=== PATIENT | male | born 1960 | race Caucasian/White ===

== ENCOUNTER 2020-06-24 16:38 | Emergency (ER) | payer MEDICAID ==
[~2020-06-24] VITALS: Ht 180.3 cm; Wt 118.2 kg
[~2020-06-24 16:38] MED LIST: CLIN-97 PO; EMOL78CR TOP; PRED10TA PO
[2020-06-24 17:46] LABS: BASOPHILS % (AUTO) 0.5 % (0-1); EOSINOPHILS # (AUTO) 0.1 X10'3 (0-0.9); HEMATOCRIT 38.7 % (42.0-52.0); HEMOGLOBIN 12.9 g/dl (14.0-17.9); LYMPHOCYTES # (AUTO) 1.5 X10'3 (1.1-4.8); LYMPHOCYTES % (AUTO) 19.8 % (21-51); MEAN CORPUSCULAR HEMOGLOBIN 29.5 PG (27.0-31.0); MEAN CORPUSCULAR HGB CONC 33.4 g/dL (33.0-36.5); MEAN CORPUSCULAR VOLUME 88.2 FL (78-98); MEAN PLATELET VOLUME 8.4 FL (7.4-10.4); MONOCYTES # (AUTO) 0.7 X10'3 (0-0.9); MONOCYTES % (AUTO) 9.7 % (2-12); NEUTROPHILS # (AUTO) 5.1 X10'3 (1.8-7.7); PLATELET COUNT 251 X10'3 (140-440); RED BLOOD COUNT 4.39 X10'6 (4.70-6.10); RED CELL DISTRIBUTION WIDTH 14.1 % (11.5-14.5); WHITE BLOOD COUNT 7.5 X10'3 (4.5-11.0)
[2020-06-24 17:58] LABS: PARTIAL THROMBOPLASTIN TIME 26 SECONDS (22-32)
[2020-06-24 18:01] LABS: ALANINE AMINOTRANSFERASE 26 U/L (12-78); ALBUMIN 3.7 G/DL (3.4-5.0); ALKALINE PHOSPHATASE 89 IU/L (46-116); ANION GAP 7 (8-16); ASPARTATE AMINO TRANSFERASE 17 U/L (10-37); BILIRUBIN,TOTAL 0.3 MG/DL (0.1-1.0); BLOOD UREA NITROGEN 20 MG/DL (7-18); BUN/CREATININE RATIO 19.4 (5.4-32.0); CALCIUM 8.7 MG/DL (8.5-10.1); CHLORIDE 107 MMOL/L (99-107); CREATININE 1.03 MG/DL (0.60-1.10); GLUCOSE 210 MG/DL (70-104); POTASSIUM 3.2 MMOL/L (3.5-5.1); SODIUM 145 MMOL/L (135-145); TOTAL CARBON DIOXIDE 30.6 MMOL/L (24-32); TOTAL PROTEIN 7.3 G/DL (6.4-8.2); eGFR 73 ML/MIN
[2020-06-24 18:05] LABS: TROPONIN I < 0.04 NG/ML (0.0-0.05)
[2020-06-24] MEDS ORDERED: normal saline 1000ml 1,000 ML IV ONE (18:15)
[2020-06-24] MEDS ORDERED: iohexol 350MG/ML 100ml bottle IV ONE (18:22)
--- NOTE | 2020-06-24 18:52 | NUR ---
Dr. Olson and myself at bedside, reports that pt has "[place] Palsy" and does not need further workup. Pt with clear speech, alert and oriented.
[2020-06-24] MEDS ORDERED: ACYC-202 PO (19:01)
[2020-06-24] MEDS ORDERED: PRED20TA PO (19:01)
[2020-06-24 19:23] VITALS: BP 173/100
== END 2020-06-24 19:25 | disposition home or self-care (01) ==
LOC: ER 16:39
DX: G51.0 Bell's palsy (principal); I10 Essential (primary) hypertension; E11.9 Type 2 diabetes mellitus without complications; F12.90 Cannabis use, unspecified, uncomplicated; Z79.2 Long term (current) use of antibiotics; Z79.899 Other long term (current) drug therapy
CPT/HCPCS: 36415; 70450; 71045; 80053; 82948; 84484; 85025; 85610; 85730; 93005; 99285; Q9967

== ENCOUNTER 2020-10-12 14:09 | Emergency (ER) | payer MEDICAID ==
[~2020-10-12] VITALS: Ht 188 cm; Wt 115.4 kg
[2020-10-12 15:31] LABS: BASOPHILS % (AUTO) 0.1 % (0-1); EOSINOPHILS # (AUTO) 0.2 X10'3 (0-0.9); EOSINOPHILS % (AUTO) 2.8 % (0-6); HEMOGLOBIN 13.8 g/dl (14.0-17.9); LYMPHOCYTES # (AUTO) 1.9 X10'3 (1.1-4.8); LYMPHOCYTES % (AUTO) 21.7 % (21-51); MEAN CORPUSCULAR HEMOGLOBIN 28.9 PG (27.0-31.0); MEAN CORPUSCULAR HGB CONC 32.9 g/dL (33.0-36.5); MEAN CORPUSCULAR VOLUME 87.8 FL (78-98); MEAN PLATELET VOLUME 8.8 FL (7.4-10.4); MONOCYTES # (AUTO) 0.7 X10'3 (0-0.9); MONOCYTES % (AUTO) 7.7 % (2-12); NEUTROPHILS % (AUTO) 67.7 % (42-75); PLATELET COUNT 306 X10'3 (140-440); RED BLOOD COUNT 4.78 X10'6 (4.70-6.10); RED CELL DISTRIBUTION WIDTH 13.7 % (11.5-14.5); WHITE BLOOD COUNT 8.9 X10'3 (4.5-11.0)
[2020-10-12 15:34] LABS: ALANINE AMINOTRANSFERASE 23 U/L (12-78); ALKALINE PHOSPHATASE 92 IU/L (46-116); ANION GAP 9 (8-16); ASPARTATE AMINO TRANSFERASE 19 U/L (10-37); BILIRUBIN,TOTAL 0.3 MG/DL (0.1-1.0); BLOOD UREA NITROGEN 16 MG/DL (7-18); BUN/CREATININE RATIO 15.8 (5.4-32.0); CALCIUM 9.2 MG/DL (8.5-10.1); CHLORIDE 101 MMOL/L (99-107); CREATININE 1.01 MG/DL (0.60-1.10); GLUCOSE 109 MG/DL (70-104); SODIUM 139 MMOL/L (135-145); TOTAL CARBON DIOXIDE 28.8 MMOL/L (24-32); TOTAL PROTEIN 7.9 G/DL (6.4-8.2); eGFR 75 ML/MIN
[2020-10-12 15:40] LABS: POTASSIUM 2.8 MMOL/L (3.5-5.1)
[2020-10-12] MEDS ORDERED: POTA20TA19 PO (16:34)
[2020-10-12] MEDS ORDERED: SULF1TAB49 PO (16:34)
[2020-10-12 16:56] VITALS: BP 154/80
== END 2020-10-12 16:54 | disposition home or self-care (01) ==
LOC: ER 14:10
DX: E87.6 Hypokalemia (principal); M79.675 Pain in left toe(s); M25.512 Pain in left shoulder; E11.42 Type 2 diabetes mellitus with diabetic polyneuropathy; I10 Essential (primary) hypertension; F12.90 Cannabis use, unspecified, uncomplicated; Z79.899 Other long term (current) drug therapy
CPT/HCPCS: 36415; 80053; 85025; 99283

== ENCOUNTER 2021-08-07 11:40 | Inpatient (IN) | payer MEDICAID ==
[~2021-08-07] VITALS: Ht 182.9 cm; Wt 117.0 kg
[2021-08-07 12:24] LABS: BASOPHILS % (AUTO) 0.2 % (0-1); EOSINOPHILS % (AUTO) 0.7 % (0-6); HEMATOCRIT 38.2 % (42.0-52.0); HEMOGLOBIN 12.9 g/dl (14.0-17.9); LYMPHOCYTES # (AUTO) 1.2 X10'3 (1.1-4.8); MEAN CORPUSCULAR HEMOGLOBIN 29.2 PG (27.0-31.0); MEAN CORPUSCULAR HGB CONC 33.7 g/dL (33.0-36.5); MEAN CORPUSCULAR VOLUME 86.6 FL (78-98); MEAN PLATELET VOLUME 7.8 FL (7.4-10.4); MONOCYTES # (AUTO) 0.8 X10'3 (0-0.9); MONOCYTES % (AUTO) 12.6 % (2-12); NEUTROPHILS # (AUTO) 4.5 X10'3 (1.8-7.7); NEUTROPHILS % (AUTO) 68.5 % (42-75); PLATELET COUNT 358 X10'3 (140-440); RED BLOOD COUNT 4.41 X10'6 (4.70-6.10); RED CELL DISTRIBUTION WIDTH 13.8 % (11.5-14.5); WHITE BLOOD COUNT 6.5 X10'3 (4.5-11.0)
[2021-08-07 12:48] LABS: ALANINE AMINOTRANSFERASE 45 U/L (12-78); ALBUMIN 3.5 G/DL (3.4-5.0); ALBUMIN/GLOBULIN RATIO 0.9 (1.1-1.5); ALKALINE PHOSPHATASE 64 IU/L (46-116); ANION GAP 13 (8-16); ASPARTATE AMINO TRANSFERASE 48 U/L (10-37); BILIRUBIN,TOTAL 0.6 MG/DL (0.1-1.0); BLOOD UREA NITROGEN 38 MG/DL (7-18); CALCIUM 8.6 MG/DL (8.5-10.1); CHLORIDE 100 MMOL/L (99-107); CREATININE 2.37 MG/DL (0.60-1.10); GLUCOSE 211 MG/DL (70-104); SODIUM 142 MMOL/L (135-145); TOTAL CARBON DIOXIDE 28.6 MMOL/L (24-32); TOTAL PROTEIN 7.6 G/DL (6.4-8.2); eGFR 28 ML/MIN
[2021-08-07 12:52] LABS: POTASSIUM 2.5 MMOL/L (3.5-5.1)
[2021-08-07] MEDS ORDERED: potassium Cl 20 mEq SR tablet PO ONE (13:25)
[2021-08-07] MEDS ORDERED: CefTRIAXone/D5W-Rocephin 1gm 50 ML IV ONE (13:25)
[2021-08-07] MEDS ORDERED: azithromycin/NS 500mg/250ml 250 ML IV ONE (13:25)
[2021-08-07] MEDS ORDERED: normal saline 1000ML IV soln IVB ONE (13:35)
[2021-08-07] MEDS ORDERED: acetaminophen 325mg tablet PO PRN (13:45)
[2021-08-07] MEDS ORDERED: potassium Cl 20 mEq SR tablet PO PRN (13:45)
[2021-08-07] MEDS ORDERED: magnesium 4gm in 100ml NS 100 ML IV PRN (13:45)
[2021-08-07] MEDS ORDERED: ondansetron/PF 4mg/2ml inj IV PRN (13:45)
[2021-08-07] MEDS ORDERED: ipratropium/albuterol 3ml nebule NEB PRN ×2 (13:45)
[2021-08-07] MEDS ORDERED: potassium CL 10mEq/100ml bag 100 ML IV PRN (13:45)
[2021-08-07] MEDS ORDERED: magnesium Cl slow-release 64mg tablet PO PRN (13:45)
[2021-08-07] MEDS ORDERED: magnesium 2GM in 50ml NS 50 ML IV PRN (13:45)
[2021-08-07] MEDS: potassium CL 10mEq/100ml bag 100 ML IV SCH ×2 (14:03→20:49)
[2021-08-07] MEDS: normal saline 1000ml 1,000 ML IV SCH ×2 (14:04→23:45)
[2021-08-07] MEDS: enoxaparin 40mg/0.4ml syringe SUBCUT SCH (14:17)
[2021-08-07 14:46] LABS: MAGNESIUM 2.3 MG/DL (1.5-2.4)
[2021-08-07 14:52] LABS: POTASSIUM 2.7 MMOL/L (3.5-5.1)
--- NOTE | 2021-08-07 15:03 | NUR ---
REQUEST FOR COVID RESULTS FROM [facility]: BALTAZAR WAS FAXED.
--- NOTE | 2021-08-07 15:21 | NUR ---
telephone report to ghada ledezma.
[2021-08-07] MEDS ORDERED: METO25TA6 PO (15:55)
[2021-08-07] MEDS ORDERED: CHLO50TA PO (15:55)
[2021-08-07] MEDS ORDERED: FLO0.4C PO (15:55)
[2021-08-07] MEDS ORDERED: LOSA100T57 PO (15:55)
[2021-08-07] MEDS ORDERED: METF-900 PO (15:55)
[2021-08-07] MEDS ORDERED: AMLO-708 PO (15:55)
[2021-08-07] MEDS ORDERED: ASPI-611 PO (15:57)
[2021-08-07] MEDS ORDERED: ALBUTEROL INHALER 1 PUFF/90 MCG INHALER IH PRN (17:25)
[2021-08-07 18:00] VITALS: BP 123/62
[2021-08-07 18:05] LABS: MAGNESIUM 2.3 MG/DL (1.5-2.4)
[2021-08-07] MEDS ORDERED: CefTRIAXone/D5W-Rocephin 1gm 50 ML IV SCH (18:05)
[2021-08-07 18:10] LABS: POTASSIUM 2.7 MMOL/L (3.5-5.1)
[2021-08-07 18:14] LABS: HEMOGLOBIN A1C 7.7 % (4.5-6.2)
--- NOTE | 2021-08-07 18:33 | NUR ---
Problems reprioritized. Patient report given, questions answered & plan of care reviewed with Tyler BA.
[2021-08-07] MEDS ORDERED: methylPREDNISolone sod succ 125mg/2ml vial IV SCH (20:00)
[2021-08-07] MEDS: K and/or MAG REPLACEMENT MC SCH (20:00)
[2021-08-07] MEDS: potassium Cl 20 mEq SR tablet PO PRN ×2 (20:37→23:40)
[2021-08-07] MEDS ORDERED: temazepam 15mg capsule PO PRN (21:00)
[2021-08-07] MEDS: ALBUTEROL INHALER 1 PUFF/90 MCG INHALER IH SCH ×2 (21:16→23:35)
[2021-08-07 22:00] VITALS: BP 136/84
[2021-08-08] MEDS: potassium Cl 20 mEq SR tablet PO PRN (04:30)
[2021-08-08 06:00] VITALS: BP 140/71
--- NOTE | 2021-08-08 06:26 | NUR ---
Patient in room ORTHO 4009. I have received report from Magno BA and had the opportunity to ask questions and assume patient care.
--- NOTE | 2021-08-08 06:41 | NUR ---
reported to days. noted pt resting. up ad emil. lab to draw AM labs.
[2021-08-08 07:43] LABS: BASOPHILS % (AUTO) 0.1 % (0-1); EOSINOPHILS % (AUTO) 0.1 % (0-6); HEMATOCRIT 38.1 % (42.0-52.0); LYMPHOCYTES # (AUTO) 0.6 X10'3 (1.1-4.8); MEAN CORPUSCULAR HEMOGLOBIN 29.3 PG (27.0-31.0); MEAN CORPUSCULAR VOLUME 86.3 FL (78-98); MEAN PLATELET VOLUME 7.9 FL (7.4-10.4); MONOCYTES # (AUTO) 0.1 X10'3 (0-0.9); MONOCYTES % (AUTO) 1.6 % (2-12); NEUTROPHILS # (AUTO) 6.9 X10'3 (1.8-7.7); NEUTROPHILS % (AUTO) 90.2 % (42-75); PLATELET COUNT 345 X10'3 (140-440); RED BLOOD COUNT 4.41 X10'6 (4.70-6.10); RED CELL DISTRIBUTION WIDTH 13.9 % (11.5-14.5); WHITE BLOOD COUNT 7.7 X10'3 (4.5-11.0)
[2021-08-08] MEDS: ALBUTEROL INHALER 1 PUFF/90 MCG INHALER IH SCH ×5 (07:44→23:00)
[2021-08-08] MEDS: CefTRIAXone/D5W-Rocephin 1gm 50 ML IV SCH (07:57)
[2021-08-08] MEDS: methylPREDNISolone sod succ/PF 40mg inj. IV SCH ×2 (07:58→20:32)
[2021-08-08] MEDS: enoxaparin 40mg/0.4ml syringe SUBCUT SCH (07:58)
[2021-08-08] MEDS: K and/or MAG REPLACEMENT MC SCH ×2 (08:00→19:28)
[2021-08-08 08:08] LABS: ALBUMIN 3.1 G/DL (3.4-5.0); ANION GAP 10 (8-16); BLOOD UREA NITROGEN 30 MG/DL (7-18); BUN/CREATININE RATIO 16.2 (5.4-32.0); CALCIUM 8.5 MG/DL (8.5-10.1); CHLORIDE 105 MMOL/L (99-107); CREATININE 1.85 MG/DL (0.60-1.10); GLUCOSE 225 MG/DL (70-104); MAGNESIUM 2.2 MG/DL (1.5-2.4); POTASSIUM 3.8 MMOL/L (3.5-5.1); SODIUM 143 MMOL/L (135-145); TOTAL CARBON DIOXIDE 28.4 MMOL/L (24-32); eGFR 37 ML/MIN
[2021-08-08] MEDS: azithromycin/NS 500mg/250ml 250 ML IV SCH (08:46)
[2021-08-08 09:09] LABS: D-DIMER 0.57 MG/L FEU (0-0.50)
[2021-08-08 09:16] LABS: C-REACTIVE PROTEIN 1.59 MG/DL (0.0-0.5)
[2021-08-08] MEDS ORDERED: dextrose 50%-water 50ml dispensing syringe IV PRN ×2 (12:15)
[2021-08-08] MEDS ORDERED: glucagon, human recombinant 1mg kit SUBCUT PRN (12:15)
[2021-08-08] MEDS ORDERED: MESSAGE TO PHARMACY PO ONE (12:15)
[2021-08-08] MEDS ORDERED: dextrose ORAL solution 15 GM/59 ML bottle PO PRN ×2 (12:15)
[2021-08-08 14:00] VITALS: BP 148/77
[2021-08-08] MEDS: insulin Lispro (HumaLOG) vial - multi-dose SQ SCH ×3 (14:08→20:43)
--- NOTE | 2021-08-08 14:22 | NUR ---
DM Consult: Noted A1c of 7.7. Pt PO intake 100% of carb controlled meals; now receiving double meat per consult. international sales manager called pt who refused verbal and written DM diet education. Will continue to follow. Addendum: 08/08/21 at 1422 by Justo Ferrari - Special Programs Director BILLY Amended: Links added. Addendum: 08/08/21 at [address] I have reviewed and agree with note by Special Programs DirectorIndy Hughes RD
[2021-08-08 18:00] VITALS: BP 138/82
[2021-08-08] MEDS ORDERED: insulin glargine (Lantus) pen - multi-dose SQ SCH (21:00)
[2021-08-08 22:00] VITALS: BP 135/83
--- NOTE | 2021-08-08 22:38 | NUR ---
It was reported to me that patient refused breathing tx. Patient confirmed with me that he refuses tx for the entire night. He states that he does not want to waken up for breathing treatment. Patient has further denies any discomfort or pain. Patient sat >94 on room air. No apparent distress was noted. All safety measures implemented. Will continue to monitor
--- NOTE | 2021-08-08 22:44 | NUR ---
It was reported to me that patient refused breathing tx. Patient confirmed with me that he refuses tx for the entire night. He states that he does not want to waken up for breathing treatment. Patient has further denies any discomfort or pain. Patient educated about the importance for the treatment and the possible outcomes of such refusal. patient verbalizes understanding but still refuses treatment. Patient appears in no apparent distress. Denies any discomfort or pain. O2 sat remains > 94% on RA. All safety measures implemented. Will continue to monitor
[2021-08-09] MEDS: ALBUTEROL INHALER 1 PUFF/90 MCG INHALER IH SCH ×5 (03:00→15:00)
[2021-08-09 06:00] VITALS: BP 127/72
[2021-08-09] MEDS: enoxaparin 40mg/0.4ml syringe SUBCUT SCH (07:51)
[2021-08-09] MEDS: methylPREDNISolone sod succ/PF 40mg inj. IV SCH (07:51)
[2021-08-09] MEDS: CefTRIAXone/D5W-Rocephin 1gm 50 ML IV SCH (07:51)
[2021-08-09] MEDS: insulin Lispro (HumaLOG) vial - multi-dose SQ SCH ×2 (07:54→13:00)
[2021-08-09] MEDS: K and/or MAG REPLACEMENT MC SCH (08:00)
[2021-08-09 08:27] LABS: BASOPHILS % (AUTO) 0.1 % (0-1); EOSINOPHILS % (AUTO) 0 % (0-6); HEMATOCRIT 38.5 % (42.0-52.0); LYMPHOCYTES # (AUTO) 1.1 X10'3 (1.1-4.8); MEAN CORPUSCULAR HEMOGLOBIN 29.1 PG (27.0-31.0); MEAN CORPUSCULAR HGB CONC 33.8 g/dL (33.0-36.5); MEAN CORPUSCULAR VOLUME 86.1 FL (78-98); MEAN PLATELET VOLUME 7.8 FL (7.4-10.4); MONOCYTES # (AUTO) 0.8 X10'3 (0-0.9); MONOCYTES % (AUTO) 3.7 % (2-12); NEUTROPHILS # (AUTO) 20.6 X10'3 (1.8-7.7); NEUTROPHILS % (AUTO) 91.2 % (42-75); PLATELET COUNT 439 X10'3 (140-440); RED BLOOD COUNT 4.48 X10'6 (4.70-6.10); RED CELL DISTRIBUTION WIDTH 13.4 % (11.5-14.5); WHITE BLOOD COUNT 22.5 X10'3 (4.5-11.0)
[2021-08-09] MEDS: azithromycin/NS 500mg/250ml 250 ML IV SCH (08:33)
[2021-08-09 08:40] LABS: ALBUMIN 3.2 G/DL (3.4-5.0); ANION GAP 10 (8-16); BLOOD UREA NITROGEN 31 MG/DL (7-18); BUN/CREATININE RATIO 19.7 (5.4-32.0); CALCIUM 8.9 MG/DL (8.5-10.1); CHLORIDE 103 MMOL/L (99-107); CREATININE 1.57 MG/DL (0.60-1.10); GLUCOSE 216 MG/DL (70-104); MAGNESIUM 1.8 MG/DL (1.5-2.4); POTASSIUM 3.5 MMOL/L (3.5-5.1); SODIUM 142 MMOL/L (135-145); eGFR 45 ML/MIN
[2021-08-09 08:45] LABS: D-DIMER 0.66 MG/L FEU (0-0.50)
[2021-08-09 09:22] LABS: C-REACTIVE PROTEIN 0.66 MG/DL (0.0-0.5)
[2021-08-09 09:23] VITALS: BP 136/72
[2021-08-09 14:00] VITALS: BP 135/78
[2021-08-09] MEDS ORDERED: LEVO500T90 PO (14:49)
[2021-08-09] MEDS ORDERED: PRED20TA PO (14:49)
[2021-08-09] MEDS ORDERED: metoprolol tartrate 25mg tablet PO SCH (20:00)
[2021-08-09] MEDS ORDERED: tamsulosin 0.4mg capsule PO SCH (20:00)
[2021-08-10] MEDS ORDERED: losartan 50mg tablet PO SCH (08:00)
[2021-08-10] MEDS ORDERED: chlorthalidone 25mg tablet PO SCH (08:00)
[2021-08-10] MEDS ORDERED: aspirin 81mg, enteric-coated 1 TAB TABLET.DR PO SCH (08:00)
[2021-08-10] MEDS ORDERED: amLODIPine 5mg tablet PO SCH (08:00)
== END 2021-08-09 16:05 | disposition home or self-care (01) | DRG 137 ==
LOC: ER 11:41 → ED HOLD 13:46 → ORTHO 4S 15:40
PROVIDERS: ADMIT Internal Medicine; ATTEND Family Medicine
DX: U07.1 COVID-19 (principal); J96.90 Respiratory failure, unspecified, unspecified whether with hypoxia or hypercapnia; J18.9 Pneumonia, unspecified organism; E11.22 Type 2 diabetes mellitus with diabetic chronic kidney disease; N18.30 Chronic kidney disease, stage 3 unspecified; F12.90 Cannabis use, unspecified, uncomplicated; I12.9 Hypertensive chronic kidney disease with stage 1 through stage 4 chronic kidney disease, or unspecified chronic kidney disease; J44.0 Chronic obstructive pulmonary disease with (acute) lower respiratory infection; E11.42 Type 2 diabetes mellitus with diabetic polyneuropathy; E87.6 Hypokalemia; J44.1 Chronic obstructive pulmonary disease with (acute) exacerbation; F17.210 Nicotine dependence, cigarettes, uncomplicated; Z79.899 Other long term (current) drug therapy; Z79.82 Long term (current) use of aspirin; Z71.6 Tobacco abuse counseling
CPT/HCPCS: 36415; 71045; 71250; 80048; 80053; 82948; 83036; 83605; 83735; 83880; 84132; 84145; 85025; 85379; 86140; 87040; 87081; 94640; 94667; 94760; 99285; G0378; J0456; J0696; J1650; J1815; J2920; J2930; J3480; J7030

== ENCOUNTER 2022-01-14 12:06 | Emergency (ER) | payer MEDICAID ==
[~2022-01-14] VITALS: Ht 180.3 cm; Wt 113.6 kg
[~2022-01-14 12:06] MED LIST changes: +AMLO-708 PO; +ASPI-611 PO; +CHLO50TA PO; -CLIN-97 PO; -EMOL78CR TOP; +FLO0.4C PO; +LOSA100T57 PO; +METF-900 PO; +METO25TA6 PO; -PRED10TA PO
[2022-01-14 12:21] VITALS: BP 136/88
[2022-01-14] MEDS ORDERED: triamcinolone acetonide 40mg/ml inj IM ONE (14:10)
== END 2022-01-14 16:00 | disposition home or self-care (01) ==
LOC: ER 12:06
DX: L23.7 Allergic contact dermatitis due to plants, except food (principal); I10 Essential (primary) hypertension; E11.9 Type 2 diabetes mellitus without complications; F12.10 Cannabis abuse, uncomplicated; Z79.899 Other long term (current) drug therapy; Z79.82 Long term (current) use of aspirin
CPT/HCPCS: 96372; 99283; J3301

== ENCOUNTER 2024-03-05 18:53 | Inpatient (IN) | payer BC, MEDICAID ==
[~2024-03-05] VITALS: Ht 180.3 cm; Wt 105.0 kg
[~2024-03-05 18:53] MED LIST changes: -LOSA100T57 PO; +LOSA100T58 PO
[2024-03-05 19:45] LABS: BASOPHILS % (AUTO) 0.1 % (0-1); EOSINOPHILS % (AUTO) 0 % (0-6); HEMATOCRIT 39.6 % (42.0-52.0); HEMOGLOBIN 13.4 g/dl (14.0-17.9); LYMPHOCYTES # (AUTO) 1.2 X10'3 (1.1-4.8); LYMPHOCYTES % (AUTO) 4.4 % (21-51); MEAN CORPUSCULAR HEMOGLOBIN 30.2 PG (27.0-31.0); MEAN PLATELET VOLUME 8.8 FL (7.4-10.4); MONOCYTES # (AUTO) 1.7 X10'3 (0-0.9); MONOCYTES % (AUTO) 6.3 % (2-12); NEUTROPHILS # (AUTO) 23.7 X10'3 (1.8-7.7); NEUTROPHILS % (AUTO) 89.2 % (42-75); PLATELET COUNT 291 X10'3 (140-440); RED BLOOD COUNT 4.45 X10'6 (4.70-6.10); RED CELL DISTRIBUTION WIDTH 13.9 % (11.5-14.5)
[2024-03-05 19:53] LABS: ALBUMIN 3.6 G/DL (3.4-5.0); ANION GAP 11 (8-16); BLOOD UREA NITROGEN 20 MG/DL (7-18); BUN/CREATININE RATIO 12.4 (10.0-20.0); CALCIUM 8.9 MG/DL (8.5-10.1); CHLORIDE 102 MMOL/L (99-107); CREATININE 1.61 MG/DL (0.60-1.10); GLUCOSE 158 MG/DL (70-104); PRO BRAIN NATRIURETIC PEPTIDE 701 PG/ML (0-125); SODIUM 139 MMOL/L (135-145); TOTAL CARBON DIOXIDE 26.1 MMOL/L (24-32); eCRCL 48 ML/MIN; eGFR 43 ML/MIN
[2024-03-05 19:58] LABS: WHITE BLOOD COUNT 26.6 X10'3 (4.5-11.0)
[2024-03-05] MEDS ORDERED: potassium Cl 40MEQ/1/2NS 520ml 520 ML IV PRN ×2 (20:10→20:15)
[2024-03-05] MEDS ORDERED: potassium Cl 20 mEq SR tablet PO PRN ×3 (20:10→20:15)
[2024-03-05] MEDS ORDERED: magnesium Cl slow-release 64mg tablet PO PRN ×2 (20:10→20:15)
[2024-03-05] MEDS ORDERED: magnesium sulf-water 4G/100mL 100 ML IV PRN ×2 (20:10→20:15)
[2024-03-05] MEDS ORDERED: magnesium sulf-water 2g/50mL 50 ML IV PRN ×2 (20:10→20:15)
[2024-03-05] MEDS ORDERED: magnesium hydroxide 30ml (MOM) UD suspension PO PRN (20:15)
[2024-03-05] MEDS ORDERED: ondansetron/PF 4mg/2ml inj IV PRN (20:15)
[2024-03-05] MEDS ORDERED: acetaminophen 325mg tablet PO PRN (20:15)
[2024-03-05] MEDS ORDERED: mag hydrox/Alum hydrox/simeth 30ml oral suspension PO PRN (20:15)
[2024-03-05] MEDS: methylPREDNISolone sod succ 125mg/2ml vial IV ONE (20:21)
[2024-03-05] MEDS: normal saline 1000ML IV soln IVB ONE (20:21)
[2024-03-05] MEDS: CefTRIAXone 2gm/D5W 50ml BAG 50 ML IV ONE (20:22)
[2024-03-05 20:32] LABS: BANDS% (MANUAL) 3 % (0-10); LYMPHOCYTES % (MANUAL) 5 % (21-51); MONOCYTES % (MANUAL) 8 % (2-12); NEUTROPHILS % (MANUAL) 84 % (42-75); PLATELET ESTIMATE NORMAL; TOTAL CELLS COUNTED 100
[2024-03-05 20:38] LABS: D-DIMER 0.89 MG/L FEU (0-0.50)
[2024-03-05] MEDS: azithromycin/NS 500mg/250ml 250 ML IV STA (20:57)
[2024-03-05] MEDS: potassium Cl 20 mEq SR tablet PO PRN (20:57)
[2024-03-05] MEDS: normal saline 1000ml 1,000 ML IV SCH (21:04)
[2024-03-05] MEDS ORDERED: glucagon, human recombinant 1mg kit SUBCUT PRN (22:00)
[2024-03-05] MEDS ORDERED: dextrose 50%-water 50ml dispensing syringe IV PRN ×2 (22:00)
[2024-03-05] MEDS ORDERED: DEXTROSE 15 GM of carb/4 tabs (each vial/BOTTLE has 4 tablets) PO PRN ×2 (22:00)
[2024-03-05 22:19] LABS: CHOL/HDL RATIO 2.5 (0.00-4.99); CHOLESTEROL 138 MG/DL (0-200); HDL CHOLESTEROL 56 MG/DL (35-60); LDL CHOLESTEROL 69 MG/DL (50-100); TRIGLYCERIDES 52 MG/DL (20-135)
[2024-03-05] MEDS ORDERED: albuterol 2.5 MG/3 ML nebule NEB PRN (22:30)
[2024-03-05 22:41] LABS: HEMOGLOBIN A1C 6.3 % (4.5-6.2)
[2024-03-05 23:30] VITALS: BP 155/82; PULSE 84; RESP 22; TEMP 99.3; O2SAT 93
[2024-03-05] MEDS: ipratropium/albuterol 3ml nebule NEB SCH (23:58)
[2024-03-05 23:59] VITALS: PULSE 86; RESP 18; O2SAT 92
[2024-03-06] VITALS (15 sets, daily range): BP systolic 107–137; BP diastolic 56–71; PULSE 74–97; RESP 18–24; TEMP 97.4–99.1; O2SAT 90–96
[2024-03-06] MEDS: insulin Lispro (HumaLOG) vial - multi-dose SQ ONE
[2024-03-06] MEDS: losartan 50mg tablet PO SCH (00:02)
[2024-03-06 06:53] LABS: BASOPHILS % (AUTO) 0 % (0-1); EOSINOPHILS % (AUTO) 0 % (0-6); HEMATOCRIT 39.5 % (42.0-52.0); HEMOGLOBIN 12.9 g/dl (14.0-17.9); LYMPHOCYTES # (AUTO) 0.5 X10'3 (1.1-4.8); LYMPHOCYTES % (AUTO) 2.4 % (21-51); MEAN CORPUSCULAR HGB CONC 32.6 g/dL (33.0-36.5); MEAN CORPUSCULAR VOLUME 89.1 FL (78-98); MEAN PLATELET VOLUME 8.9 FL (7.4-10.4); MONOCYTES # (AUTO) 0.3 X10'3 (0-0.9); MONOCYTES % (AUTO) 1.2 % (2-12); NEUTROPHILS # (AUTO) 21.9 X10'3 (1.8-7.7); NEUTROPHILS % (AUTO) 96.4 % (42-75); PLATELET COUNT 252 X10'3 (140-440); RED BLOOD COUNT 4.43 X10'6 (4.70-6.10); RED CELL DISTRIBUTION WIDTH 13.8 % (11.5-14.5); WHITE BLOOD COUNT 22.7 X10'3 (4.5-11.0)
[2024-03-06 07:35] LABS: ALBUMIN 2.8 G/DL (3.4-5.0); ANION GAP 9 (8-16); BLOOD UREA NITROGEN 18 MG/DL (7-18); BUN/CREATININE RATIO 14.8 (10.0-20.0); CALCIUM 8.5 MG/DL (8.5-10.1); CHLORIDE 107 MMOL/L (99-107); CREATININE 1.22 MG/DL (0.60-1.10); GLUCOSE 231 MG/DL (70-104); MAGNESIUM 2.3 MG/DL (1.5-2.4); POTASSIUM 3.7 MMOL/L (3.5-5.1); SODIUM 143 MMOL/L (135-145); TOTAL CARBON DIOXIDE 26.9 MMOL/L (24-32); eCRCL 63 ML/MIN; eGFR 59 ML/MIN
[2024-03-06] MEDS: K and/or MAG REPLACEMENT MC SCH ×2 (08:00)
[2024-03-06] MEDS ORDERED: non-formulary drug (Losartan Potassium 1 TAB) PO SCH (08:00)
[2024-03-06] MEDS: docusate sod 100mg capsule PO SCH (08:12)
[2024-03-06] MEDS: aspirin 81mg, enteric-coated 1 TAB TABLET.DR PO SCH (08:13)
[2024-03-06] MEDS: metoprolol tartrate 25mg tablet PO SCH (08:15)
[2024-03-06] MEDS: amLODIPine 5mg tablet PO SCH (08:16)
[2024-03-06] MEDS: tamsulosin 0.4mg capsule PO SCH (08:17)
[2024-03-06] MEDS: CefTRIAXone/D5W-Rocephin 1gm 50 ML IV SCH (08:18)
[2024-03-06] MEDS: INSULIN LISPRO 100 UNIT/ML INSULN.PEN MULTI-DOSE SQ SCH (08:21)
[2024-03-06] MEDS: azithromycin/NS 500mg/250ml 250 ML IV SCH (09:09)
[2024-03-06] MEDS: piperacillin/tazo 3.375gm/50ml 50 ML IV SCH (12:36)
[2024-03-06] MEDS: pneumococcal 23-VAL P-sac vacc 25 mcg/0.5ml vial IMVAC ONE (15:49)
[2024-03-07] VITALS (12 sets, daily range): BP systolic 140–165; BP diastolic 72–79; PULSE 59–86; RESP 18; TEMP 97.8; O2SAT 92–94
[2024-03-07 05:34] LABS: BASOPHILS % (AUTO) 0.1 % (0-1); EOSINOPHILS % (AUTO) 0 % (0-6); HEMATOCRIT 38.9 % (42.0-52.0); HEMOGLOBIN 12.4 g/dl (14.0-17.9); LYMPHOCYTES # (AUTO) 1.3 X10'3 (1.1-4.8); LYMPHOCYTES % (AUTO) 5.4 % (21-51); MEAN CORPUSCULAR HEMOGLOBIN 28.9 PG (27.0-31.0); MEAN CORPUSCULAR HGB CONC 31.9 g/dL (33.0-36.5); MEAN CORPUSCULAR VOLUME 90.4 FL (78-98); MEAN PLATELET VOLUME 9.1 FL (7.4-10.4); MONOCYTES # (AUTO) 1.2 X10'3 (0-0.9); MONOCYTES % (AUTO) 5.3 % (2-12); NEUTROPHILS # (AUTO) 20.9 X10'3 (1.8-7.7); NEUTROPHILS % (AUTO) 89.2 % (42-75); PLATELET COUNT 256 X10'3 (140-440); RED CELL DISTRIBUTION WIDTH 14.3 % (11.5-14.5); WHITE BLOOD COUNT 23.4 X10'3 (4.5-11.0)
[2024-03-07 05:36] LABS: ALBUMIN 2.6 G/DL (3.4-5.0); ANION GAP 8 (8-16); BLOOD UREA NITROGEN 26 MG/DL (7-18); CALCIUM 8.5 MG/DL (8.5-10.1); CHLORIDE 110 MMOL/L (99-107); CREATININE 1.18 MG/DL (0.60-1.10); GLUCOSE 124 MG/DL (70-104); MAGNESIUM 2.5 MG/DL (1.5-2.4); SODIUM 147 MMOL/L (135-145); TOTAL CARBON DIOXIDE 29.2 MMOL/L (24-32); eCRCL 66 ML/MIN; eGFR 62 ML/MIN
[2024-03-07] MEDS: vancomycin/NS 1 GM ADD-VANTAGE 250 ML IV SCH ×2 (07:58→20:00)
[2024-03-07] MEDS: methylPREDNISolone sod succ/PF 40mg inj. IV SCH (17:48)
[2024-03-08 03:43] VITALS: PULSE 65; RESP 18; O2SAT 89
[2024-03-08 03:51] VITALS: PULSE 72; RESP 18
[2024-03-08 05:38] LABS: BASOPHILS % (AUTO) 0 % (0-1); EOSINOPHILS % (AUTO) 0.1 % (0-6); HEMATOCRIT 37.4 % (42.0-52.0); HEMOGLOBIN 12.3 g/dl (14.0-17.9); LYMPHOCYTES % (AUTO) 7.3 % (21-51); MEAN CORPUSCULAR HEMOGLOBIN 29.4 PG (27.0-31.0); MEAN CORPUSCULAR HGB CONC 32.9 g/dL (33.0-36.5); MEAN CORPUSCULAR VOLUME 89.4 FL (78-98); MONOCYTES # (AUTO) 0.6 X10'3 (0-0.9); MONOCYTES % (AUTO) 4.4 % (2-12); NEUTROPHILS # (AUTO) 11.6 X10'3 (1.8-7.7); NEUTROPHILS % (AUTO) 88.2 % (42-75); PLATELET COUNT 265 X10'3 (140-440); RED BLOOD COUNT 4.19 X10'6 (4.70-6.10); RED CELL DISTRIBUTION WIDTH 14.3 % (11.5-14.5); WHITE BLOOD COUNT 13.1 X10'3 (4.5-11.0)
[2024-03-08 05:49] LABS: ALBUMIN 2.8 G/DL (3.4-5.0); ANION GAP 5 (8-16); BLOOD UREA NITROGEN 19 MG/DL (7-18); BUN/CREATININE RATIO 21.3 (10.0-20.0); CALCIUM 8.5 MG/DL (8.5-10.1); CHLORIDE 108 MMOL/L (99-107); CREATININE 0.89 MG/DL (0.60-1.10); GLUCOSE 146 MG/DL (70-104); MAGNESIUM 2.3 MG/DL (1.5-2.4); POTASSIUM 3.7 MMOL/L (3.5-5.1); SODIUM 143 MMOL/L (135-145); TOTAL CARBON DIOXIDE 29.7 MMOL/L (24-32); eCRCL 87 ML/MIN; eGFR 86 ML/MIN
[2024-03-08 06:04] LABS: APTT 26 SECONDS (22-32); INR 1.2 INR
[2024-03-08] MEDS ORDERED: VANCOMYCIN LEVEL IV ONE (19:30)
== END 2024-03-08 07:15 | disposition left against medical advice (07) | DRG 871 ==
LOC: ER 18:54 → ED HOLD 20:59 → ORTHO 4S 22:15
PROVIDERS: ADMIT Internal Medicine Critical Care Medicine; ATTEND Internal Medicine
DX: A41.9 Sepsis, unspecified organism (principal); J18.9 Pneumonia, unspecified organism; J96.01 Acute respiratory failure with hypoxia; J44.1 Chronic obstructive pulmonary disease with (acute) exacerbation; J44.0 Chronic obstructive pulmonary disease with (acute) lower respiratory infection; N17.9 Acute kidney failure, unspecified; E11.22 Type 2 diabetes mellitus with diabetic chronic kidney disease; N40.0 Benign prostatic hyperplasia without lower urinary tract symptoms; E11.42 Type 2 diabetes mellitus with diabetic polyneuropathy; F12.90 Cannabis use, unspecified, uncomplicated; Z20.822 Contact with and (suspected) exposure to COVID-19; Z53.21 Procedure and treatment not carried out due to patient leaving prior to being seen by health care provider; E87.6 Hypokalemia; I12.9 Hypertensive chronic kidney disease with stage 1 through stage 4 chronic kidney disease, or unspecified chronic kidney disease; N18.32 Chronic kidney disease, stage 3b; Z79.82 Long term (current) use of aspirin; Z79.84 Long term (current) use of oral hypoglycemic drugs; Z79.899 Other long term (current) drug therapy; Z87.01 Personal history of pneumonia (recurrent); Z87.891 Personal history of nicotine dependence
CPT/HCPCS: 36415; 71046; 71250; 76770; 80048; 80061; 82948; 83036; 83605; 83735; 83880; 84145; 84484; 85007; 85025; 85379; 85610; 85730; 87040; 87070; 87081; 87811; 90732; 93005; 94640; 94760; 96365; 96375; 97116; 97161; 97530; 99285; A6258; G0378; J0456; J0696; J1815; J2543; J2919; J3370; J7030; J7040

== ENCOUNTER 2024-07-01 12:06 | Emergency (ER) | payer BC, MEDICAID ==
[~2024-07-01] VITALS: Ht 180.3 cm; Wt 103.6 kg
[~2024-07-01 12:06] MED LIST changes: -CHLO50TA PO
[2024-07-01 13:09] LABS: BASOPHILS % (AUTO) 0.3 % (0-1); EOSINOPHILS # (AUTO) 0.1 X10'3 (0-0.9); EOSINOPHILS % (AUTO) 0.9 % (0-6); HEMATOCRIT 43.4 % (42.0-52.0); HEMOGLOBIN 14.5 g/dl (14.0-17.9); LYMPHOCYTES # (AUTO) 1.3 X10'3 (1.1-4.8); LYMPHOCYTES % (AUTO) 10.6 % (21-51); MEAN CORPUSCULAR HEMOGLOBIN 29.4 PG (27.0-31.0); MEAN CORPUSCULAR HGB CONC 33.3 g/dL (33.0-36.5); MEAN CORPUSCULAR VOLUME 88.2 FL (78-98); MEAN PLATELET VOLUME 7.8 FL (7.4-10.4); MONOCYTES # (AUTO) 0.9 X10'3 (0-0.9); MONOCYTES % (AUTO) 7.6 % (2-12); NEUTROPHILS % (AUTO) 80.6 % (42-75); PLATELET COUNT 420 X10'3 (140-440); RED BLOOD COUNT 4.92 X10'6 (4.70-6.10); RED CELL DISTRIBUTION WIDTH 13.7 % (11.5-14.5); WHITE BLOOD COUNT 12.4 X10'3 (4.5-11.0)
[2024-07-01] MEDS ORDERED: ALBU2.5V10 NEB (13:12)
[2024-07-01] MEDS: ipratropium/albuterol 3ml nebule NEB ONE (13:25)
[2024-07-01 13:26] VITALS: PULSE 93; RESP 18; O2SAT 98
[2024-07-01 13:31] VITALS: PULSE 92; RESP 16; O2SAT 98
[2024-07-01 13:32] LABS: ALANINE AMINOTRANSFERASE 40 U/L (12-78); ALBUMIN 3.2 G/DL (3.4-5.0); ALBUMIN/GLOBULIN RATIO 0.7 (1.1-1.5); ALKALINE PHOSPHATASE 108 IU/L (46-116); ANION GAP 8 (8-16); ASPARTATE AMINO TRANSFERASE 28 U/L (10-37); BILIRUBIN,TOTAL 0.5 MG/DL (0.1-1.0); BLOOD UREA NITROGEN 15 MG/DL (7-18); BUN/CREATININE RATIO 12.4 (10.0-20.0); CALCIUM 9.1 MG/DL (8.5-10.1); CHLORIDE 103 MMOL/L (99-107); CREATININE 1.21 MG/DL (0.60-1.10); GLUCOSE 150 MG/DL (70-104); POTASSIUM 3.4 MMOL/L (3.5-5.1); SODIUM 143 MMOL/L (135-145); TOTAL CARBON DIOXIDE 32.5 MMOL/L (24-32); TOTAL PROTEIN 7.9 G/DL (6.4-8.2); eCRCL 64 ML/MIN; eGFR 60 ML/MIN
[2024-07-01 13:33] LABS: APTT 28 SECONDS (22-32); INR 1.2 INR; PROTHROMBIN TIME 12.3 SECONDS (9.0-12.0)
[2024-07-01 13:39] LABS: BILIRUBIN,DIRECT 0.1 MG/DL (0-0.3); PRO BRAIN NATRIURETIC PEPTIDE 879 PG/ML (0-125)
[2024-07-01] MEDS ORDERED: iohexol 300mg/ml 100ml inj. ONE (13:42)
[2024-07-01] MEDS: LIDOcaine 1% W/epiNEPHrine 1:100,000 20ml vial SQ ONE (14:25)
[2024-07-02] MEDS ORDERED: PRED20TA PO (09:54)
[2024-07-02] MEDS ORDERED: FLO0.4C (09:54)
[2024-07-02] MEDS ORDERED: TAMSULOSIN (09:54)
[2024-07-02] MEDS: amLODIPine 5mg tablet PO ONE (10:13)
[2024-07-02] MEDS: losartan 50mg tablet PO SCH (10:50)
[2024-07-02 11:37] VITALS: BP 169/114; PULSE 106; RESP 26; TEMP 98.5; O2SAT 92
== END 2024-07-02 11:45 | disposition short-term general hospital (02) ==
LOC: ER 12:07
DX: C34.01 Malignant neoplasm of right main bronchus (principal); Z20.822 Contact with and (suspected) exposure to COVID-19; E11.42 Type 2 diabetes mellitus with diabetic polyneuropathy; I10 Essential (primary) hypertension; F12.90 Cannabis use, unspecified, uncomplicated; Z79.899 Other long term (current) drug therapy
CPT/HCPCS: 36415; 71046; 71250; 74177; 80048; 80076; 82948; 83605; 83880; 84484; 85025; 85610; 85730; 87040; 87811; 93005; 94640; 99285; Q9967; 94760; A6449

== ENCOUNTER 2024-10-31 23:24 | Emergency (ER) | payer BC, MEDICAID ==
[~2024-10-31 23:24] MED LIST changes: +ALBU2.5V10 NEB; -FLO0.4C PO; +NICO-631 TD; +PRED20TA PO; +TAMS-55 PO
[2024-10-31] MEDS ORDERED: iohexol 350MG/ML 100ml bottle IV ONE (23:54)
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
[2024-10-31 23:57] LABS: BASOPHILS % (AUTO) 0.4 % (0-1); EOSINOPHILS # (AUTO) 0.1 X10'3 (0-0.9); EOSINOPHILS % (AUTO) 1.1 % (0-6); HEMATOCRIT 32.5 % (42.0-52.0); HEMOGLOBIN 10.6 g/dl (14.0-17.9); LYMPHOCYTES # (AUTO) 0.8 X10'3 (1.1-4.8); LYMPHOCYTES % (AUTO) 10.8 % (21-51); MEAN CORPUSCULAR HEMOGLOBIN 29.5 PG (27.0-31.0); MEAN CORPUSCULAR HGB CONC 32.7 g/dL (33.0-36.5); MEAN CORPUSCULAR VOLUME 90.1 FL (78-98); MEAN PLATELET VOLUME 7.9 FL (7.4-10.4); MONOCYTES # (AUTO) 0.5 X10'3 (0-0.9); MONOCYTES % (AUTO) 7.2 % (2-12); NEUTROPHILS # (AUTO) 5.9 X10'3 (1.8-7.7); NEUTROPHILS % (AUTO) 80.5 % (42-75); PLATELET COUNT 101 X10'3 (140-440); RED BLOOD COUNT 3.61 X10'6 (4.70-6.10); RED CELL DISTRIBUTION WIDTH 17.4 % (11.5-14.5); WHITE BLOOD COUNT 7.3 X10'3 (4.5-11.0)
[2024-11-01 00:07] LABS: INR 1.3 INR; PROTHROMBIN TIME 12.7 SECONDS (9.0-12.0)
[2024-11-01 00:10] LABS: ALANINE AMINOTRANSFERASE 21 U/L (12-78); ALBUMIN 3.2 G/DL (3.4-5.0); ALBUMIN/GLOBULIN RATIO 0.9 (1.1-1.5); ALKALINE PHOSPHATASE 155 IU/L (46-116); ANION GAP 4 (8-16); ASPARTATE AMINO TRANSFERASE 24 U/L (10-37); BILIRUBIN,TOTAL 0.4 MG/DL (0.1-1.0); BLOOD UREA NITROGEN 16 MG/DL (7-18); BUN/CREATININE RATIO 15.7 (10.0-20.0); CALCIUM 8.4 MG/DL (8.5-10.1); CHLORIDE 105 MMOL/L (99-107); CREATININE 1.02 MG/DL (0.60-1.10); GLUCOSE 148 MG/DL (70-104); POTASSIUM 3.7 MMOL/L (3.5-5.1); SODIUM 145 MMOL/L (135-145); TOTAL PROTEIN 6.8 G/DL (6.4-8.2); eGFR 73 ML/MIN
[2024-11-01 00:18] LABS: PRO BRAIN NATRIURETIC PEPTIDE 1508 PG/ML (0-125)
[2024-11-01] MEDS: guaiFENesin ER 600mg tablet PO ONE (00:28)
--- NOTE | 2024-11-01 00:44 | RADIOLOGY REPORT ---
Clinical History CP Comparison CHEST XRAY on 09/11/2924, 1 images. Technique: A single AP/PA chest radiograph was provided for review. Without Contrast GERMAN CAST, [id number] FINDINGS: Lungs: Hypoexpanded lungs without pneumothorax. There is a small left pleural effusion. No focal con solidation or mass is seen. Heart: Enlarged. Mediastinum: Within normal limits. Vasculature: Pulmonary vascular congestion. Tubes/lines: None. Osseous structures: No evidence for acute fracture. IMPRESSION: Low lung volumes. Cardiomegaly. Pulmonary vascular congestion. Left pleural effusion. This report was electronically signed by Elijah Arreola MD on 11/01/2024 12:40:55 AM.
--- NOTE | 2024-11-01 01:50 | RADIOLOGY REPORT ---
Clinical History Hemoptysis Comparison CTA CHEST PE on 09/11/2024, 1328 images. Technique: MIPS reconstruction was performed in multiple planes. All CT scans at this medical facility are performed using dose modulation techniques as appropriate t o a performed exam including the following: Automated exposure control was utilized; adjustment of th e mA and/or kV according to patient size; and use of iterative reconstruction technique. All CT studies are reported to the Dose Index Registry of the [employer]. 3D images be reconstructed or obtained with maximum intensity projection postprocessing (MIP), volume rendered or other 3D technique. 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 Mediastinal and left hilar lymphadenopathy, the largest is seen in the brief vascular space measuring 2.4 x 3.6 cm No evidence of acute or chronic PE. The ma buddy mediastinal vascular structures are unremarkable. The heart and pericardium are unremarkable. The esophagus is unremarkable. Thoracic wall: unremarkable Lungs: Left upper lobe endobronchial filling defect associated with complete left upper lobe collapse with compensatory hyperinflation of the left lower lobe. Retained secretions are seen in the left m ain bronchus. Mild bilateral paraseptal emphysematous changes. Interval increase of mild left pleur al effusion with adjacent atelectasis. No pneumothorax.The major airways are unremarkable. Upper abdomen: 2.2 cm left adrenal nodule which could represent metastasis Musculoskeletal: No acute osseous abnormality. Degenerative changes of the imaged skeleton. Impression: No evidence of acute or chronic PE. No evidence of acute thoracic aorta syndrome. Mediastinal and left hilar metastatic lymphadenopathy Left upper lobar endobronchial filling defect associated with complete left upper lobe collapse with compensatory hyperinflation of the left lower lung. Left adrenal nodule which could represent metastasis This report was electronically signed by Jomar Bonilla MD on 11/01/2024 1:46:59 AM.
[2024-11-01 05:01] LABS: ABG BASE EXCESS 9.3 mmol/L (-2.0-3.0); ABG HCO3 38.6 mmol/L (21.0-28.0); ABG OXYGEN SATURATION 85.4 % (94.0-98.0); ABG PH (T) 7.288 (7.350-7.450); ALLEN'S TEST POSITIVE; FCOHb 1.7 % (0.5-1.5); FHHb 14.4 % (0.0-5.0); FO2Hb 83.9 % (94.0-98.0); TOTAL HEMOGLOBIN 11.8 G/dl (13.5-17.5)
[2024-11-01 06:40] VITALS: BP 182/92; PULSE 73; RESP 18; TEMP 98.7; O2SAT 89
[2024-11-01 07:11] LABS: ABG PCO2 (T) 82.6 mmHg (35.0-48.0)
[2024-11-01 07:12] LABS: ABG PO2 (T) 54.7 mmHg (83.0-108.0)
--- NOTE | 2024-11-01 07:42 | ELECTROCARDIOGRAPH REPORT ---
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 Toney Gibson Measurements Intervals [place] Rate: 81 P: 76 LA: 200 QRS: 19 QRSD: 103 T: 62 QT: 402 QTc: 467 Interpretive Statements Sinus rhythm Probable left atrial enlargement Probable anteroseptal infarct, old Electronically Signed On 11-01-2024 15:46:[address] Toney Gibson Please click the below link to view image of tracing.
[2024-11-01] MEDS ORDERED: LORA-269 PO (18:57)
[2024-11-01] MEDS ORDERED: MORP2SYR PO (19:50)
== END 2024-11-01 07:52 | disposition left against medical advice (07) ==
LOC: ER 23:24
DX: R04.2 Hemoptysis (principal); E11.42 Type 2 diabetes mellitus with diabetic polyneuropathy; C34.90 Malignant neoplasm of unspecified part of unspecified bronchus or lung; F12.90 Cannabis use, unspecified, uncomplicated; I10 Essential (primary) hypertension; Z79.82 Long term (current) use of aspirin
CPT/HCPCS: 36415; 36600; 71045; 71275; 80053; 82803; 83880; 84484; 85018; 85025; 85610; 86885; 86900; 86901; 93005; 99285; Q9967; A4615; A4620

== ENCOUNTER 2024-11-01 09:32 | Emergency (ER) | payer BC, MEDICAID ==
[~2024-11-01] VITALS: Ht 180.3 cm; Wt 96.4 kg
[2024-11-01] VITALS (7 sets, daily range): BP systolic 134; BP diastolic 115; PULSE 67–82; RESP 16–20; TEMP 98.7; O2SAT 88–97
--- NOTE | 2024-11-01 09:39 | Physician Documentation ---
History of Present Illness ~ Stated Complaint: SEE CHIEF COMPLAINT Time Seen by MD: 09:33 Primary Medical Doctor: [facility] HPI Patient with history of metastatic lung cancer presenting for hemoptysis. Ongoing over the last 24 hours. Was seen in the ED this morning for identical presentation where he had CT angiogram which showed no pulmonary embolism, did show complete collapse of the left upper lobe. He reports that he had prior history of endobronchial stent which he coughed up a few weeks ago. Medication Reconciliation Allergies: Coded Allergies: No Known Allergies (Unverified , 11/01/24) Scheduled Amlodipine Besylate (Amlodipine Besylate), 1 TAB PO DAILY, (Reported) Aspirin (Aspir 81), 1 TAB PO DAILY, (Reported) Lorazepam (Ativan), 1 TAB PO Q8H Losartan Potassium (Losartan Potassium), 1 TAB PO DAILY, (Reported) Metformin Hcl* (Metformin ER*), 1 TAB PO BID, (Reported) Metoprolol Tartrate (Metoprolol Tartrate), 1 TAB PO BID, (Reported) Nicotine 14 MG Patch* (Habitrol 14 MG Patch*), 1 PATCH TD DAILY Prednisone* (Prednisone*), 2 TAB PO DAILY, (Reported) Tamsulosin Hcl* (Flomax*), 1 CAP PO BID, (Reported) Scheduled PRN Morphine Sulfate/0.9% NaCl/Pf (Morphine 2 mg/ml-0.9% NaCl Syr), 2 MG PO Q4H PRN for cough Miscellaneous Medications Albuterol Sulfate (Albuterol Sulfate), 1 VIAL NEB, (Reported) Past Medical History Past Medical History: Peripheral Neuropathy, Hypertension, Pneumonia, Diabetes Past Surgical History: no surgical history Alcohol Use: Occasionally Drug Use: marijuana Lives In: Home Progress Progress Note 2:51 p.m. still awaiting transfer. He is now getting increasingly belligerent. He is disoriented pulling off all of his telemetry leads he has torn out his IV and has pulled off his oxygen. Pulse ox reading in the mid to low 80s. He is agreeable to placing oxygen and IV again however is altered. I don't think he has capacity at this point as he is moderately encephalopathic. Will try a low dose anxiolytic to help keep him safe. 5:30 p.m. discussed his goals of care with his daughter Lynn. She states that he would not want any aggressive procedures performed. He does not want to be transferred to any other hospital including for endobronchial stenting. He also would not want to be put on a ventilator and he would not want to be resuscitated if he were to naturally. I clarified that this is consistent with a DNR/DNI which is completely reasonable given his end of life goals and his acute on chronic deterioration 6:54 p.m. patient is now completely awake he is alert oriented and does not want to stay in the hospital. He states that he wants to diet home peacefully and without going on hospice. He is aware that going home would likely mean his and he is alert oriented informed of his poor prognosis and this is a completely reasonable alternative given his improvement now in his mental status to make his own decisions. His family plans to pick him up Results/Orders Reviewed/noted all lab results: Yes Results/Orders Orders - JOHN ABAD MD Electrocardiogram (11/01/24 09:43) Monitor (11/01/24 09:43) Covid19 Binax Poc Result Entry (11/01/24 09:43) Abg (Arterial Blood Gas) (11/01/24 ) Bipap/Cpap (11/01/24 11:18) Chest,Single View (11/01/24 14:51) Abg (Arterial Blood Gas) (11/01/24 ) Page Hospitalist (11/01/24 17:59) Fill Out Med Reconciliation (11/01/24 17:59) Completed Orders - JOHN ABAD MD Electrocardiogram (11/01/24 09:43) Cbc/Diff (11/01/24 09:43) BMP (11/01/24 09:43) PTT (11/01/24 09:43) Pt Inr (11/01/24 09:43) Type And Screen (11/01/24 09:43) Man Diff (11/01/24 10:08) Tranexamic Acid Inj. (Cyklokapron Inj.) (11/01/24 11:05) Albuterol 2.5mg/3ml Nebule (Proventil 2. (11/01/24 11:40) * Rt Notification Q1H (11/01/24 11:39) Chest,Single View (11/01/24 14:51) Olanzapine Im (Zyprexa I.M. Im On (11/01/24 15:00) Methylprednisolone Sod Succ/Pf (Solu-Med (11/01/24 17:40) Ceftriaxone 2gm/D5w 50ml Bag (Rocephin 2 (11/01/24 17:40) Lorazepam Inj (Ativan Inj) (11/01/24 18:00) Vital Signs 11/01/24 11/01/24 11/01/24 11/01/24 09:36 09:44 09:46 10:41 Temp 98.7 98.7 Pulse 75 69 73 Resp 23 18 19 16 B/P (MAP) 166/97 167/97 (120) 167/82 (110) Pulse Ox 69 97 93 O2 Flow Rate 8.0 4.0 11/01/24 11/01/24 11/01/24 11/01/24 11:29 11:40 11:42 12:02 Pulse 71 74 79 67 Resp 18 19 20 20 B/P (MAP) 164/89 (114) Pulse Ox 97 98 94 O2 Delivery Nasal Cannula* Nasal Cannula O2 Flow Rate 4 4.0 4.0 50.0 FiO2 36 40 11/01/24 11/01/24 11/01/24 11/01/24 12:14 12:19 13:09 13:12 Pulse 71 70 75 Resp 20 20 23 20 B/P (MAP) 160/88 (112) 160/84 (109) Pulse Ox 91 92 94 O2 Flow Rate 50.0 70.0 50.0 FiO2 41 70 11/01/24 11/01/24 11/01/24 11/01/24 14:20 15:47 16:29 18:50 Pulse 71 65 68 82 Resp 20 19 19 16 B/P (MAP) 163/81 (108) 152/85 (107) 134/115 (121) Pulse Ox 95 98 97 88 O2 Flow Rate 50.0 50.0 50.0 3.0 FiO2 69 69 70 Laboratory Tests Test 11/01/24 10:08 11/01/24 11:40 11/01/24 12:22 White Blood Count 6.0 Red Blood Count 3.43 L Hemoglobin 10.1 L Hematocrit 30.9 L Mean Corpuscular Volume 89.9 Mean Corpuscular Hemoglobin 29.3 Mean Corpuscular Hemoglobin Concent 32.6 L Red Cell Distribution Width 17.5 H Platelet Count 85 L Mean Platelet Volume 7.8 Neutrophils (%) (Auto) 75.0 Lymphocytes (%) (Auto) 12.9 L Monocytes (%) (Auto) 10.2 Eosinophils (%) (Auto) 1.4 Basophils (%) (Auto) 0.5 Neutrophils # (Auto) 4.5 Lymphocytes # (Auto) 0.8 L Monocytes # (Auto) 0.6 Eosinophils # (Auto) 0.1 Basophils # (Auto) 0.0 CBC Comment Differential Total Cells Counted 100 Neutrophils % (Manual) 77.0 H Lymphocytes % (Manual) 14.0 L Monocytes % (Manual) 8.0 Eosinophils % (Manual) 1.0 Platelet Estimate Decreased Red Blood Cell Morphology Perf Basophilic Stippling Anisocytosis 1+ Prothrombin Time 12.6 H INR International Normalized Ratio 1.3 Activated Partial Thromboplast Time 27 Coagulation Comments Sodium Level 147 H Potassium Level 3.9 Chloride Level 105 Carbon Dioxide Level 36.9 H Anion Gap 5 L Blood Urea Nitrogen 16 Creatinine 0.93 Estimated GFR/1.73 m2 81 BUN/Creatinine Ratio 17.2 Glucose Level 173 H Calcium Level 8.3 L Albumin 3.0 L Chemistry Comments SARS-CoV-2 Antigen (Rapid) Negative Blood Gas Specimen Type Arterial Blood Gas Puncture Site Rr O2 Saturation 89.7 L Arterial Blood pH (Temp corrected) 7.274 L Arterial Blood pCO2 (Temp correct) 83.0 *H Arterial Blood pO2 (Temp corrected) 62.9 L Arterial Blood PO2/FiO2 Ratio 1.60 Arterial Blood HCO3 37.8 H Arterial Blood Base Excess 8.4 H Arterial Blood Oxyhemoglobin 87.8 L Arterial Blood Carboxyhemoglobin 1.8 H Arterial Blood Methemoglobin 0.3 Arterial Blood Deoxyhemoglobin 10.1 H Gilbert Test Positive Blood Gas Hemoglobin 11.1 L Blood Gas Temperature 36.7 Blood Gas Liter Flow 50 Blood Gas Modality Hhfnc FiO2 40.0 Blood Gas Critical Value Called To Md abad Re-Evaluation Re-Evaluation : Re-Evaluation: Worsened Progress Reassess patient at 11:15 a.m. he is having increasing oxygen requirements and is more somnolent. I am starting him on BiPAP. I discussed the case with Pulmonary critical Care Dr. Ornelas who is recommending transfer for interventional radiology. Medical Decision Making Additional info obtained from: family Differential Diagnosis Hemoptysis, pneumonia, diffuse alveolar hemorrhage Departure Disposition: 01 HOME / SELF CARE / HOMELESS Admitted to Inpatient Unit: to hospitalist Impression: Primary Impression: Acute hypoxic respiratory failure Additional Impression: Hemoptysis Additional Impression Text Patient with metastatic lung cancer just finished chemotherapy presenting for acute on chronic hypoxic respiratory failure now with hemoptysis. He has profoundly hypoxic in the ED requiring high-flow nasal cannula. Patient had refused by BiPAP treatment. CTA of his chest earlier today shows complete collapse of his left upper lobe. Patient had episodes of waxing and waning mental status initially his goals of care were unclear however during a significant period of lucidity I discussed extensively at the bedside with this patient and his daughter on the phone that he does not want any aggressive treatment. He would not want a new stent placed does not want chemotherapy or any further aggressive treatment of his cancer. He would like to go home and at home. He does not want to be admitted to the hospital. He does not want to go on a formal hospice plan. He is awake alert oriented when I talked with him about his goals of care and able to make a reasonably informed decision which his family is supportive of Additional Instructions: Please call your primary care physician in the morning they can help you with hospice referral. If you would like any further aggressive treatment please return to the emergency department and/or call your oncology team for further recommendations Referrals: NO PRIMARY CARE PROVIDER (PCP) Prescriptions Morphine Sulfate/0.9% NaCl/Pf (Morphine 2 mg/ml-0.9% NaCl Syr) 2 Mg/Ml Syringe 2 MG PO Q4H PRN for cough for 7 Days, #20 EA Prov: JOHN ABAD MD 11/01/24 Lorazepam (Ativan) 1 Mg Tablet 1 TAB PO Q8H for anxiety for 30 Days, #90 TAB 0 Refills Prov: JOHN ABAD MD 11/01/24 Critical Care Note Total Time (mins): 120 Critical Care Note The very real possibility of a deterioration of this patient's condition required the highest level of my preparedness for sudden, emergent intervention. I provided critical care services, which included medication orders, frequent reevaluations of the patient's condition and response to treatment, ordering and reviewing test results, and discussing the case with various consultants. Excludes time spent performing separately billable procedures. The critical care time associated with the care of the patient was 100 minutes in the management of acute hypoxic respiratory failure, hemoptysis Signature Scribe Signature: na Attestation: JOHN De La Rosa MD November 01, 2024 09:39
[2024-11-01] MEDS ORDERED: tranexamic acid 100mg/ml inj. NAS ONE (09:40)
--- NOTE | 2024-11-01 09:54 | ELECTROCARDIOGRAPH REPORT ---
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 Toney Gibson Measurements Intervals [place] Rate: 69 P: 55 GA: 205 QRS: 29 QRSD: 102 T: 51 QT: 424 QTc: 455 Interpretive Statements Sinus rhythm Consider anterior infarct Electronically Signed On 11-01-2024 15:46:[address] Toney Gibson Please click the below link to view image of tracing.
[2024-11-01 10:18] LABS: BASOPHILS % (AUTO) 0.5 % (0-1); EOSINOPHILS # (AUTO) 0.1 X10'3 (0-0.9); EOSINOPHILS % (AUTO) 1.4 % (0-6); HEMATOCRIT 30.9 % (42.0-52.0); HEMOGLOBIN 10.1 g/dl (14.0-17.9); LYMPHOCYTES # (AUTO) 0.8 X10'3 (1.1-4.8); LYMPHOCYTES % (AUTO) 12.9 % (21-51); MEAN CORPUSCULAR HEMOGLOBIN 29.3 PG (27.0-31.0); MEAN CORPUSCULAR HGB CONC 32.6 g/dL (33.0-36.5); MEAN CORPUSCULAR VOLUME 89.9 FL (78-98); MEAN PLATELET VOLUME 7.8 FL (7.4-10.4); MONOCYTES # (AUTO) 0.6 X10'3 (0-0.9); MONOCYTES % (AUTO) 10.2 % (2-12); NEUTROPHILS # (AUTO) 4.5 X10'3 (1.8-7.7); PLATELET COUNT 85 X10'3 (140-440); RED BLOOD COUNT 3.43 X10'6 (4.70-6.10); RED CELL DISTRIBUTION WIDTH 17.5 % (11.5-14.5)
[2024-11-01 10:29] LABS: ANION GAP 5 (8-16); BLOOD UREA NITROGEN 16 MG/DL (7-18); BUN/CREATININE RATIO 17.2 (10.0-20.0); CALCIUM 8.3 MG/DL (8.5-10.1); CHLORIDE 105 MMOL/L (99-107); CREATININE 0.93 MG/DL (0.60-1.10); GLUCOSE 173 MG/DL (70-104); POTASSIUM 3.9 MMOL/L (3.5-5.1); SODIUM 147 MMOL/L (135-145); TOTAL CARBON DIOXIDE 36.9 MMOL/L (24-32); eCRCL 83 ML/MIN; eGFR 81 ML/MIN
[2024-11-01 10:32] LABS: APTT 27 SECONDS (22-32); INR 1.3 INR; PROTHROMBIN TIME 12.6 SECONDS (9.0-12.0)
[2024-11-01 11:03] LABS: PLATELET ESTIMATE DECREASED; TOTAL CELLS COUNTED 100
[2024-11-01 11:04] LABS: ANISOCYTOSIS 1+
[2024-11-01] MEDS: tranexamic acid 100mg/ml inj. NEB ONE (11:28)
[2024-11-01] MEDS: albuterol 2.5 MG/3 ML nebule NEB ONE (11:40)
[2024-11-01 12:25] LABS: ABG BASE EXCESS 8.4 mmol/L (-2.0-3.0); ABG HCO3 37.8 mmol/L (21.0-28.0); ABG OXYGEN SATURATION 89.7 % (94.0-98.0); ABG PH (T) 7.274 (7.350-7.450); ABG PO2 (T) 62.9 mmHg (83.0-108.0); ALLEN'S TEST POSITIVE; FCOHb 1.8 % (0.5-1.5); FHHb 10.1 % (0.0-5.0); FLOW 50 L/min; FMetHb 0.3 % (0.0-1.5); FO2Hb 87.8 % (94.0-98.0); MODE HHFNC; PATIENT TEMPERATURE 36.7; TOTAL HEMOGLOBIN 11.1 G/dl (13.5-17.5)
[2024-11-01] MEDS: OLANZapine **IM** 10 mg inj. IM ONE (15:00)
--- NOTE | 2024-11-01 15:00 | RADIOLOGY REPORT ---
CHEST RADIOGRAPH Indication: sob Technique: Single frontal view of the chest was obtained COMPARISON: DI CHEST,SINGLE VIEW on DOS: 10/31/24, DI CHEST,SINGLE VIEW on DOS: 09/11/24, DI CHEST,SINGL E VIEW on DOS: 04/18/24, CHEST,SINGLE VIEW on DOS: 08/07/21, CHEST,SINGLE VIEW on DOS: 06/24/20 FINDINGS: Lines and Tubes: None Lungs: Multifocal airspace disease Pleura: No effusion. No pneumothorax. Cardiomediastinal contours: Cardiomegaly Bones: Unremarkable IMPRESSION: Multifocal airspace disease. Cardiomegaly.
[2024-11-01] MEDS ORDERED: LORA-269 PO (18:57)
[2024-11-01] MEDS: CefTRIAXone 2gm/D5W 50ml BAG 50 ML IV ONE (19:05)
[2024-11-01] MEDS: methylPREDNISolone sod succ/PF 40mg inj. IV ONE (19:05)
[2024-11-01] MEDS: LORazepam 2 mg/ml vial IV ONE (19:05)
[2024-11-01] MEDS ORDERED: MORP2SYR PO (19:50)
== END 2024-11-01 19:48 | disposition home or self-care (01) ==
LOC: ER 09:33
DX: J96.01 Acute respiratory failure with hypoxia (principal); R04.2 Hemoptysis; Z51.11 Encounter for antineoplastic chemotherapy; C34.90 Malignant neoplasm of unspecified part of unspecified bronchus or lung; E11.42 Type 2 diabetes mellitus with diabetic polyneuropathy; I10 Essential (primary) hypertension; Z20.822 Contact with and (suspected) exposure to COVID-19
CPT/HCPCS: 36415; 36600; 71045; 80048; 82803; 85018; 85025; 85610; 85730; 86885; 86900; 86901; 87811; 93005; 94640; 99291; 99292; J3490; 85007; 94760; A4620